=== PATIENT | male | born 1970 | race American Indian/Alaskan Native ===

== ENCOUNTER 2022-04-02 12:20 | Outpatient (CLI) | payer OTHER ==
[2022-04-02 13:02] LABS: Chol/HDL Ratio 4.9 %
== END 2022-04-02 12:21 | disposition home or self-care (01) ==
LOC: LABHHL 12:20
PROVIDERS: ATTEND Internal Medicine
DX: E78.5 Hyperlipidemia, unspecified (principal)
CPT/HCPCS: 36415; 80061